=== PATIENT | male | born 1985 ===

== ENCOUNTER 2020-07-27 14:06 | Outpatient (REF) | payer OTHER, SELFPAY ==
[2020-07-30 10:25] LABS: SARS-CoV-2 RNA Not Detected (NotDetected); SARS-CoV-2 RNA Source Nasal/Nares
== END 2020-07-27 14:26 ==
LOC: NCHCN 14:06
PROVIDERS: Visit Provider Nurse Practitioner Family
DX: J06.9 Acute upper respiratory infection, unspecified (principal)
CPT/HCPCS: U0003

== ENCOUNTER 2021-05-19 20:48 | Outpatient (REF) | payer OTHER, SELFPAY ==
[2021-05-21 15:08] LABS: COVID-19 RT-PCR UVMMC Result Negative (Negative)
== END 2021-05-19 20:49 | disposition home or self-care (01) ==
LOC: NCHCN 20:48
PROVIDERS: Visit Provider Nurse Practitioner Family
DX: Z20.822 Contact with and (suspected) exposure to COVID-19 (principal); J06.9 Acute upper respiratory infection, unspecified
CPT/HCPCS: U0003